=== PATIENT | male | born 1975 | race Hispanic/Latino ===

== ENCOUNTER 2018-08-05 21:31 | Emergency (ER) | payer SELFPAY ==
[2018-08-05 21:36] VITALS: BP 135/91; PULSE 76; RESP 16; TEMP 98.1; O2SAT 97
== END 2018-08-05 21:46 | disposition left against medical advice (07) ==
LOC: C.ER 21:31
DX: Z02.89 Encounter for other administrative examinations (principal); F19.10 Other psychoactive substance abuse, uncomplicated